=== PATIENT | female | born 1965 | race American Indian/Alaskan Native ===

== ENCOUNTER 2019-08-21 10:55 | Emergency (ER) | payer SELFPAY ==
[2019-08-21 11:52] VITALS: BP 154/98
--- NOTE | 2019-08-21 11:59 | Emergency Department Report ---
Chief Complaint: Sore Throat Stated Complaint: SORE THROAT Time Seen by Provider: 08/21/19 11:50 - HPI History of Present Illness: 3 days of sore throat - ROS Review of Systems: Denies fever chest pain, no sob, painful swallowing but able to swallow fluids and food. Full Rom of neck - Exam Vital Signs: Vital Signs 08/21/19 11:50 Temperature 98.8 F Pulse Rate 101 H Respiratory 16 Rate Blood Pressure 154/98 O2 Sat by Pulse 98 Oximetry Physical Exam: Alert and oriented x 3 Resp easy and unlabored Oropharynx: Uvula midline, tonsils erythremic with small white exudate Full ROM of neck Skin warm dry and intact Gait steady. MSE screening note: Focused history and physical exam performed. Due to findings the following was ordered: Discuss follow up with Dr. Edilberto Reed Pt plans to go to Dr. Reed office to be seen today. Instruct to return to ER for SOB, unable to swallow or worsening symptoms. ED Medical Decision Making - Medical Decision Making Sore throat x 3 days. No fever no chills. Patient in no distress this is a non emergent condition pt agrees to go and see [employer] today Dr Reed ED Disposition for MSE Disposition: DC-01 TO HOME OR SELFCARE Condition: Stable Additional Instructions: Dr. Brianna MD [phone] call to be seen today Time of Disposition: 12:02
== END 2019-08-21 11:53 | disposition home or self-care (01) ==
LOC: ED 10:55
DX: J02.9 Acute pharyngitis, unspecified (principal)

== ENCOUNTER 2020-02-25 10:20 | Outpatient (CLI) | payer BC ==
[2020-02-26 07:53] LABS: Basophils # (Auto) 0.1 K/mm3 (0.0-0.1); Basophils % (Auto) 0.8 % (0.0-1.8); Eosinophils # (Auto) 0.1 K/mm3 (0.0-0.4); Hematocrit 40.6 % (30.3-42.9); Hemoglobin 13.4 gm/dl (10.1-14.3); Lymphocytes # (Auto) 2.6 K/mm3 (1.2-5.4); Mean Corpuscular HGB Conc 33 % (30-34); Mean Corpuscular Volume 79 fl (79-97); Monocytes # (Auto) 0.4 K/mm3 (0.0-0.8); Monocytes % (Auto) 6.4 % (0.0-7.3); Platelet Count 209 K/mm3 (140-440); Red Blood Count 5.12 M/mm3 (3.65-5.03); Red Cell Distribution Width 14.1 % (13.2-15.2)
[2020-02-26 08:16] LABS: Alanine Aminotransferase 15 units/L (7-56); BUN/Creatinine Ratio 20; Blood Urea Nitrogen 14 mg/dL (7-17); Calcium 8.9 mg/dL (8.4-10.2); Chol/HDL Ratio 3.44 %; HDL Cholesterol 45 mg/dL (40-59); Hemolysis Index 1; LDL Cholesterol,Direct 68 mg/dL (50-130)
== END 2020-02-25 10:21 | disposition home or self-care (01) ==
LOC: LAB 10:20
PROVIDERS: ATTEND Internal Medicine
DX: Z13.29 Encounter for screening for other suspected endocrine disorder (principal); R68.89 Other general symptoms and signs; R79.89 Other specified abnormal findings of blood chemistry; E78.5 Hyperlipidemia, unspecified; R94.6 Abnormal results of thyroid function studies
CPT/HCPCS: 36415; 80053; 80061; 83036; 84443; 85025

== ENCOUNTER 2020-03-01 07:33 | Emergency (ER) | payer BC ==
[2020-03-01 07:43] VITALS: BP 170/94
--- NOTE | 2020-03-01 08:50 | XRay Report ---
Left shoulder 2 views INDICATION: Left shoulder pain Impression no fracture or subluxation identified. Mild degenerative change is present in the left AC joint. Signer Name: Norm Nichols MD Signed: 03/01/2020 8:45 AM Workstation Name: [id number]
[2020-03-01] MEDS ORDERED: KETOROLAC 30 MG/1 ML INJ IM ONE (09:07)
[2020-03-01] MEDS ORDERED: predniSONE 20 MG TAB PO ONE (09:07)
--- NOTE | 2020-03-01 09:07 | Emergency Department Report ---
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 Patient states that as she went to pull the patient she felt a sharp pain and pop in her left shoulder. Patient states pain was shooting in nature and throbbing and aching afterwards. Patient states that a long time ago she has had a fracture in that shoulder and was worried and wanted to have it evaluated. She denies any fall or trauma during this patient encounter. MD Complaint: extremity pain, joint paint - Related Data Previous Rx's Medication Instructions Recorded Last Taken Type Cyclobenzaprine [Flexeril] 10 mg PO QHS PRN #20 tablet 03/01/20 Unknown Rx Ibuprofen [Motrin] 800 mg PO Q8HR #40 tablet 03/01/20 Unknown Rx Allergies Allergy/AdvReac Type Severity Reaction Status Date / Time No Known Allergies Allergy Unverified 08/21/19 10:59 ED Review of Systems ROS: Stated complaint: LEFT SHOULDER POPPED OUT Other details as noted in HPI Comment: All other systems reviewed and negative ED Past Medical Hx - Past Medical History Previous Medical History?: Yes Hx Hypertension: Yes Hx Diabetes: Yes - Surgical History Past Surgical History?: No Additional Surgical History: hysterectomy - Social History Smoking Status: Never Smoker Substance Use Type: None - Medications Home Medications: Home Medications Medication Instructions Recorded Confirmed Last Taken Type Cyclobenzaprine [Flexeril] 10 mg PO QHS PRN #20 tablet 03/01/20 Unknown Rx Ibuprofen [Motrin] 800 mg PO Q8HR #40 tablet 03/01/20 Unknown Rx ED Physical Exam - General Limitations: No Limitations General appearance: alert, in no apparent distress - Head Head exam: Present: atraumatic, normocephalic - Eye Eye exam: Present: normal appearance - ENT ENT exam: Present: mucous membranes moist - Neck Neck exam: Present: normal inspection - Respiratory Respiratory exam: Present: normal lung sounds bilaterally. Absent: respiratory distress - Cardiovascular Cardiovascular Exam: Present: regular rate, normal rhythm. Absent: systolic murmur, diastolic murmur, rubs, gallop - GI/Abdominal GI/Abdominal exam: Present: soft, normal bowel sounds - Extremities Exam Extremities exam: Present: normal inspection, full ROM, tenderness (To palpation of the posterior left shoulder), normal capillary refill. Absent: joint swelling - Back Exam Back exam: Present: normal inspection, full ROM. Absent: tenderness, CVA tenderness (R), CVA tenderness (L) - Neurological Exam Neurological exam: Present: alert, oriented X3, normal gait - Psychiatric Psychiatric exam: Present: normal affect, normal mood - Skin Skin exam: Present: warm, dry, intact, normal color. Absent: rash ED Course Vital Signs 03/01/20 07:35 Temperature 98.8 F Pulse Rate 89 Respiratory 18 Rate Blood Pressure 170/94 O2 Sat by Pulse 97 Oximetry ED Medical Decision Making - Radiology Data Radiology results: report reviewed, image reviewed Fluoro Time In Minutes: Left shoulder 2 views INDICATION: Left shoulder pain Impression no fracture or subluxation identified. Mild degenerative change is present in the left AC joint. Signer Name: Norm Nichols MD Signed: 03/01/2020 8:45 AM Workstation Name: [id number] Transcribed By: Dictated By: Norm Nichols MD Electronically Authenticated By: Norm Nichols MD Signed Date/Time: 03/01/20 2245 - Medical Decision Making 54-year-old female presents to ED with left shoulder strain/sprain ED course: Patient received Toradol and prednisone in ED. X-ray of the left shoulder shows no acute fracture or dislocation. Normal x- ray. Vital signs are normal patient is in no acute distress Discussed with patient follow-up with primary care physician. Discussed the patient and take medications as prescribed. Patient has no neurological deficit. Patient is alert and oriented 3 and understands all instructions given. Discussed drowsiness effect of Flexeril makes her drowsy and not to operate machinery while taking flexeril Critical care attestation.: If time is entered above; I have spent that time in minutes in the direct care of this critically ill patient, excluding procedure time. ED Disposition Clinical Impression: Left shoulder strain Disposition: DC-01 TO HOME OR SELFCARE Is pt being admited?: No Does the pt Need Aspirin: No Condition: Stable Instructions: Rotator Cuff Injury (ED), Arthralgia (ED) Additional Instructions: Make sure to follow up with the primary care physician as discussed. Take all your medications as you've been prescribed. If you have any worsening symptoms or develop new symptoms please return to ED immediately. Prescriptions: Cyclobenzaprine [Flexeril] 10 mg PO QHS PRN #20 tablet PRN Reason: Muscle Spasm Ibuprofen [Motrin] 800 mg PO Q8HR #40 tablet Referrals: VEL CORONEL MD [Staff Physician] - 3-5 Days Forms: Work/School Release Form(ED) Time of Disposition: 09:41
== END 2020-03-01 10:10 | disposition home or self-care (01) ==
LOC: ED 07:33
DX: S46.812A Strain of other muscles, fascia and tendons at shoulder and upper arm level, left arm, initial encounter (principal); I10 Essential (primary) hypertension; E11.9 Type 2 diabetes mellitus without complications; Z90.710 Acquired absence of both cervix and uterus; Z79.899 Other long term (current) drug therapy; X58.XXXA Exposure to other specified factors, initial encounter; Y93.89 Activity, other specified; Y92.89 Other specified places as the place of occurrence of the external cause; Y99.8 Other external cause status
CPT/HCPCS: 73030; 96372; 99283; J1885; J7512

== ENCOUNTER 2020-11-10 07:16 | Outpatient (CLI) | payer BC ==
[2020-11-10 07:42] LABS: Basophils # (Auto) 0.1 K/mm3 (0.0-0.1); Basophils % (Auto) 1.1 % (0.0-1.8); Eosinophils # (Auto) 0.2 K/mm3 (0.0-0.4); Eosinophils % (Auto) 2.2 % (0.0-4.3); Hematocrit 40.2 % (30.3-42.9); Hemoglobin 13.3 gm/dl (10.1-14.3); Lymphocytes # (Auto) 2.5 K/mm3 (1.2-5.4); Lymphocytes % (Auto) 32.9 % (13.4-35.0); Mean Corpuscular HGB Conc 33 % (30-34); Mean Corpuscular Volume 79 fl (79-97); Monocytes # (Auto) 0.5 K/mm3 (0.0-0.8); Platelet Count 251 K/mm3 (140-440); Red Blood Count 5.06 M/mm3 (3.65-5.03)
== END 2020-11-10 07:17 | disposition home or self-care (01) ==
LOC: LAB 07:16
PROVIDERS: ATTEND Internal Medicine
DX: D57.3 Sickle-cell trait (principal)
CPT/HCPCS: 36415; 85025

== ENCOUNTER 2020-11-24 10:27 | Outpatient (CLI) | payer BC ==
--- NOTE | 2020-11-27 17:30 | Ultrasound Report ---
CLINICAL DATA: LEFT NODULE TECHNICAL DATA: High-resolution grayscale images of the thyroid gland were obtained. Doppler imaging was performed. FINDINGS: The right thyroid lobe measures 2.6 x 1.1 x 1.4 cm The left thyroid lobe measures 4.3 x 1.3 1.0 cm. T he thyroid isthmus measures 0.4 cm. The thyroid parenchyma is homogeneous in echogenicity. One score is assigned from each of the following categories: - NODULE # 1 - Location: Left lobe - Size (cm): 2.0 x 2.5 x 1.0 cm - Significant Change (>= 20% in 2 dim. & inc. >= 2mm): No prior study - Composition: Solid = 2 points - Echogenicity: isoechoic 1 point Shape wider than tall 0 points - Margin: Ill-defined = 0 points - Echogenic Foci: None = 0 points - Additional Echogenic Foci: None = 0 points - Additional Findings: None. - ACR TI-RADS Score / Category = TR3: 3 points mildly suspicious TR3: 1.5 cm follow up, 2.5 cm FNA IMPRESSION: 1. TR 3 lesion-2.5 cm in size recommend fine needle aspirate ACR TI-RADS is a reporting system for thyroid nodules on ultrasound proposed by the [employer] (ACR) 1. This uses a standardised scoring system for reports providing users with recommendations for when to use fine needle aspiration (FNA) or ultrasound follow-up of suspicious nodules, and when to safely le ave alone nodules that are benign/not suspicious. Ultrasound features Scoring is determined from five categories of ultrasound findings (figure 2). The higher the cumulati ve score, the higher the TR level and likelihood of malignancy. The findings in each category were detailed in the ACR committee's 2015 publication on a reporting le xicon 2. If multiple nodules ( 4) are present only the four highest scoring nodules, not necessarily the largest, should be scored, reported, and followed up. Scoring and classification TR1: 0 points benign TR2: 2 points not suspicious TR3: 3 points mildly suspicious TR4: 4-6 points moderately suspicious TR5: 7 points highly suspicious Recommendations TR1: no FNA required TR2: no FNA required TR3: 1.5 cm follow up, 2.5 cm FNA follow up: 1, 3 and 5 years TR4: 1.0 cm follow up, 1.5 cm FNA follow up: 1, 2, 3 and 5 years TR5: 0.5 cm follow up, 1.0 cm FNA annual follow up for up to 5 years. Signer Name: Abdelrahman Ponce MD Signed: 11/27/2020 5:26 PM Workstation Name: [id number]
--- NOTE | 2020-12-02 09:35 | Mammography Report ---
DIGITAL SCREENING MAMMOGRAM WITH CAD, 11/24/2020 CLINICAL INFORMATION / INDICATION: Routine screening mammography. TECHNIQUE: Digital bilateral 2D mammography was obtained in the craniocaudal and mediolateral obliqu e projections. This examination was interpreted with the benefit of Computer-Aided Detection analysis . COMPARISON: 06/08/2019, 11/09/2018, 05/10/2018, 04/04/2018 from [facility] FINDINGS: Breast Density: The breasts are heterogeneously dense, which may obscure small masses. No dominant mass, suspicious calcifications, or architectural distortion in either breast. IMPRESSION: No mammographic evidence of malignancy. Follow up recommendation: Routine yearly BI-RADS Category 1: Negative. A "normal" or negative report should not discourage follow up or biopsy of a clinically significant f inding. A written summary of these findings will be mailed to the patient. The patient will be entered into a mammography reporting system which will generate a reminder letter for the patient's next appointmen t at the appropriate interval. The [employer] recommends yearly mammograms starting at age 40 and continuing as l sandy as a woman is in good health. Breast MRI is recommended for women with an approximate 20-25% or greater lifetime risk of breast cancer, including women with a strong family history of breast or ova claire cancer or who have been treated for Hodgkin's disease. Signer Name: Sandy Perla MD Signed: 12/02/2020 9:30 AM Workstation Name: [id number]
== END 2020-11-24 10:28 | disposition home or self-care (01) ==
LOC: MAMMO 10:27
PROVIDERS: ATTEND Internal Medicine
DX: Z12.31 Encounter for screening mammogram for malignant neoplasm of breast (principal); E04.1 Nontoxic single thyroid nodule
CPT/HCPCS: 76536; 77067

== ENCOUNTER 2020-12-26 08:00 | Outpatient (CLI) | payer BC ==
--- NOTE | 2020-12-26 10:31 | Ultrasound Report ---
Fine-needle thyroid aspiration INDICATION: Thyroid nodule FINDINGS: Informed consent was obtained. Patient was explained the risk and benefits of the procedure and desire to proceed. The patient was prepped and draped in sterile fashion. Subcutaneous lidocaine was utilized of the left neck. A probe cover was used along with the proximal and draped. The left t hyroid nodule was evaluated on ultrasound. Subcutaneous lidocaine was used for local anesthesia 3 dif ferent 25-gauge needles were inserted separately under ultrasound guidance for tissue sampling. Lab c onfirmed adequate sample The patient was discharged without complication. IMPRESSION: Successful left thyroid nodule FNA. Signer Name: Contreras Rebolledo MD Signed: 12/26/2020 10:27 AM Workstation Name: [id number]
[2020-12-26 10:33] VITALS: BP 161/86
== END 2020-12-26 10:45 | disposition home or self-care (01) ==
LOC: CATHLABREC 08:00 → US 08:00 → CATHLABREC 10:50
PROVIDERS: ATTEND Internal Medicine
DX: E04.1 Nontoxic single thyroid nodule (principal); I10 Essential (primary) hypertension; Z90.710 Acquired absence of both cervix and uterus; Z79.899 Other long term (current) drug therapy; Z79.4 Long term (current) use of insulin
CPT/HCPCS: 10005; 88112; 88172; 88173; 88177; 88305

== ENCOUNTER 2021-03-31 12:40 | Emergency (ER) | payer BC, OTHER ==
[2021-03-31] MEDS ORDERED: IBUPROFEN 600 MG TAB PO ONE (13:32)
[2021-03-31 13:38] VITALS: BP 131/77
--- NOTE | 2021-03-31 14:08 | XRay Report ---
RIGHT FOOT RADIOGRAPH, 2 VIEWS INDICATION / CLINICAL INFORMATION: trauma to rt foot COMPARISON: None available. FINDINGS: BONES / JOINT(S): No acute displaced fracture or subluxation. Mild to moderate degenerative change of the midfoot. There is a large dorsal calcaneal enthesophyte. SOFT TISSUES: No significant abnormality. ADDITIONAL FINDINGS: None. Signer Name: Ngozi Beebe MD Signed: 03/31/2021 2:04 PM Workstation Name: [id number]
--- NOTE | 2021-03-31 14:27 | Emergency Department Report ---
ED Lower Extremity HPI - General Chief Complaint: Extremity Injury, Lower Stated Complaint: RT FOOT INJURY Time Seen by Provider: 03/31/21 13:08 Source: patient Mode of arrival: Wheelchair Limitations: No Limitations - History of Present Illness Initial Comments: 56-year-old -[place] female presents to the emergency room stating that while pushing a bed in ICU bed went over her right foot. Patient comes down to be evaluated. Patient states that she has pain on the top and the hindfoot of her foot. She states that she is able to bear weight on it but has pain. This happened while she was at work today here in the hospital. Complaint: foot injury -: This afternoon Injury: Foot: Right - Related Data Home Medications Medication Instructions Recorded Confirmed Last Taken Insulin Lispro [Humalog 100 0 units SQ AC 12/26/20 12/26/20 12/25/20 UNITS/ML Kwikpen] Metoprolol [Lopressor] 25 mg PO BID 12/26/20 12/26/20 12/25/20 Pravastatin [Pravachol] 20 mg PO QHS 12/26/20 12/26/20 12/25/20 amLODIPine [Norvasc] 10 mg PO DAILY 12/26/20 12/26/20 12/25/20 Previous Rx's Medication Instructions Recorded Last Taken Type Ibuprofen [Motrin 800 MG tab] 800 mg PO Q8HR PRN #30 tablet 03/31/21 Unknown Rx Allergies Allergy/AdvReac Type Severity Reaction Status Date / Time No Known Allergies Allergy Unverified 08/21/19 10:59 ED Review of Systems ROS: Stated complaint: RT FOOT INJURY Other details as noted in HPI ED Past Medical Hx - Past Medical History Hx Hypertension: Yes Hx Congestive Heart Failure: No Hx Diabetes: Yes - Surgical History Additional Surgical History: hysterectomy - Social History Smoking Status: Never Smoker Substance Use Type: None - Medications Home Medications: Home Medications Medication Instructions Recorded Confirmed Last Taken Type Insulin Lispro [Humalog 100 0 units SQ AC 12/26/20 12/26/20 12/25/20 History UNITS/ML Kwikpen] Metoprolol [Lopressor] 25 mg PO BID 12/26/20 12/26/20 12/25/20 History Pravastatin [Pravachol] 20 mg PO QHS 12/26/20 12/26/20 12/25/20 History amLODIPine [Norvasc] 10 mg PO DAILY 12/26/20 12/26/20 12/25/20 History Ibuprofen [Motrin 800 MG tab] 800 mg PO Q8HR PRN #30 tablet 03/31/21 Unknown Rx ED Physical Exam - General Limitations: No Limitations General appearance: alert, in no apparent distress - Head Head exam: Present: atraumatic, normocephalic - Eye Eye exam: Present: normal appearance - ENT ENT exam: Present: normal external ear exam - Respiratory Respiratory exam: Absent: accessory muscle use - Cardiovascular Cardiovascular Exam: Present: regular rate - Expanded Lower Extremity Exam Right Upper Leg exam: Present: normal inspection, full ROM Knee exam: Present: normal inspection, full ROM Lower Leg exam: Present: normal inspection, full ROM Ankle exam: Present: normal inspection, full ROM Foot/Toe exam: Present: full ROM, tenderness, swelling (mild). Absent: abrasion, ecchymosis, deformity, erythema Neuro vascular tendon exam: Present: no vascular compromise - Back Exam Back exam: Present: normal inspection - Neurological Exam Neurological exam: Present: alert, oriented X3 - Psychiatric Psychiatric exam: Present: normal affect, normal mood - Skin Skin exam: Present: warm, dry, intact, normal color. Absent: rash ED Course Vital Signs 03/31/21 03/31/21 03/31/21 13:35 13:36 13:44 Temperature 99 F 99 F Pulse Rate 75 75 Respiratory 16 16 16 Rate Blood Pressure 131/77 Blood Pressure 131/77 [Right] O2 Sat by Pulse 99 98 Oximetry ED Lower Extremity MDM - Radiology Data Radiology results: report reviewed Other Patient ID My Comment(s) Study Comments [facility] [address] [place] [address] XRay Report Signed Patient: KOLBY SCHUSTER MR#: [id number] : 1965 Acct:[id number] Age/Sex: 56 / F ADM Date: 03/31/21 Loc: ED Attending Dr: Ordering Physician: DEBBIE PERSON Date of Service: 03/31/21 Procedure(s): XR foot 2V RT Accession Number(s): [id number] cc: DEBBIE PERSON Fluoro Time In Minutes: RIGHT FOOT RADIOGRAPH, 2 VIEWS INDICATION / CLINICAL INFORMATION: trauma to rt foot COMPARISON: None available. FINDINGS: BONES / JOINT(S): No acute displaced fracture or subluxation. Mild to moderate degenerative change of the midfoot. There is a large dorsal calcaneal enthesophyte. SOFT TISSUES: No significant abnormality. ADDITIONAL FINDINGS: None. Signer Name: Ngozi Beebe MD Signed: 03/31/2021 2:04 PM Workstation Name: [id number] Transcribed By: [facility] Dictated By: Ngozi Beebe MD Electronically Authenticated By: Ngozi Beebe MD Signed Date/Time: 03/31/211403 DD/ 01 TD/TT: - Medical Decision Making 42-year-old morbid obese -E[place] female presents to the emergency room states that she have a red rash to her right side of her neck/shoulder. Patient states she started yesterday after she had been bitten by a bug and she started to scratch it. Patient states after she scratched it seems of gotten redder and firmer. She states that the itching in is not as bad. She denies any pain at all no discharge. Denies any fever chills. X-ray was ordered and pain medication. X-rays negative for any acute fractures or dislocation. Patient be placed in a postop shoe referral to Dr. Askew orthopedic provider. Critical care attestation.: If time is entered above; I have spent that time in minutes in the direct care of this critically ill patient, excluding procedure time. ED Disposition Clinical Impression: Right foot injury Qualifiers: Encounter type: initial encounter Qualified Code(s): S99.921A - Unspecified injury of right foot, initial encounter Disposition: DC- TO HOME OR SELFCARE Is pt being admited?: No Does the pt Need Aspirin: No Condition: Stable Instructions: Crush Injury of the Foot, [id number]-[id number] Additional Instructions: X-ray shows no fracture or dislocation. Recommend ibuprofen or Tylenol Baljeet bandage for support. Prescriptions: Ibuprofen [Motrin 800 MG tab] 800 mg PO Q8HR PRN #30 tablet PRN Reason: Pain , Severe (7-10) Referrals: PRIMARY CAREMD [Primary Care Provider] - 3-5 Days VEL ASKEW MD [Staff Physician] - 3-5 Days Forms: Work/School Release Form(ED)
== END 2021-03-31 14:40 | disposition home or self-care (01) ==
LOC: ED 12:40
DX: S99.921A Unspecified injury of right foot, initial encounter (principal); I10 Essential (primary) hypertension; E11.9 Type 2 diabetes mellitus without complications; Z79.899 Other long term (current) drug therapy; Z90.710 Acquired absence of both cervix and uterus; X58.XXXA Exposure to other specified factors, initial encounter; Y93.89 Activity, other specified; Y92.89 Other specified places as the place of occurrence of the external cause; Y99.8 Other external cause status
CPT/HCPCS: 99283

== ENCOUNTER 2021-04-16 07:09 | Outpatient (CLI) | payer BC | END 2021-04-16 07:10 | disposition home or self-care (01) | LOC: LAB 07:09 | PROVIDERS: ATTEND Internal Medicine | DX: Z11.59 Encounter for screening for other viral diseases (principal); E11.00 Type 2 diabetes mellitus with hyperosmolarity without nonketotic hyperglycemic-hyperosmolar coma (NKHHC) | CPT/HCPCS: 36415; 83036; 86803 ==

== ENCOUNTER 2021-05-04 11:42 | Outpatient (CLI) | payer BC ==
[2021-05-04 12:28] LABS: Alanine Aminotransferase 13 units/L (7-56); Albumin 3.9 g/dL (3.9-5); Blood Urea Nitrogen 16 mg/dL (7-17); Calcium 9.2 mg/dL (8.4-10.2); Hemolysis Index 7
[2021-05-04 12:35] LABS: BUN/Creatinine Ratio 23
== END 2021-05-04 11:43 | disposition home or self-care (01) ==
LOC: LAB 11:42
PROVIDERS: ATTEND Internal Medicine
DX: Z11.59 Encounter for screening for other viral diseases (principal); Z79.4 Long term (current) use of insulin; E11.9 Type 2 diabetes mellitus without complications
CPT/HCPCS: 36415; 80053; 84436; 84443

== ENCOUNTER 2021-10-05 08:08 | Outpatient (CLI) | payer BC ==
[2021-10-05 08:59] LABS: Alanine Aminotransferase 11 units/L (7-56); BUN/Creatinine Ratio 19; Blood Urea Nitrogen 17 mg/dL (7-17); Calcium 9.3 mg/dL (8.4-10.2); Chol/HDL Ratio 2.95 %; HDL Cholesterol 41 mg/dL (40-59); Hemolysis Index 3; LDL Cholesterol,Direct 61 mg/dL (50-130)
== END 2021-10-05 08:09 | disposition home or self-care (01) ==
LOC: LAB 08:08
PROVIDERS: ATTEND Internal Medicine
DX: E11.9 Type 2 diabetes mellitus without complications (principal); E78.2 Mixed hyperlipidemia; E03.8 Other specified hypothyroidism; E88.2 Lipomatosis, not elsewhere classified
CPT/HCPCS: 36415; 80053; 80061; 83036; 84439; 84443